=== PATIENT | female | born 1960 | race Caucasian/White ===

== ENCOUNTER 2019-09-26 17:06 | Inpatient (IN) ==
--- OUTSIDE RECORDS SUMMARY | 2019-09-26 20:33 | External Medical Summary | Continuity of Care Document ---
:1960 Author Name Sharla Monahan Address Unavailable Unavailable , Care Team Providers Name Role Phone Caren Monahan Unavailable [email or web address] PCP, UNKNOWN Unavailable Unavailable Problems Active medical history not documented Allergies and Adverse Reactions Allergy history not documented Medications Medications not documented Procedures Procedures not documented Immunizations Immunizations not documented Plan of Treatment Planned Observations Planned Goals not documented Results No Known Results Results not documented
[2019-09-26] MEDS ORDERED: ACETAMINOPHEN 325 MG TAB PO PRN (21:50)
[2019-09-26] MEDS ORDERED: ONDANSETRON INJ 2 MG/ML 2 ML VIAL IV PRN (21:50)
[2019-09-26] MEDS ORDERED: NITROGLYCERIN SL 0.4 MG/TAB TAB SL PRN (21:50)
[2019-09-26] MEDS ORDERED: PIPERACILLIN/TAZOBACTAM 4.5 GM in DEXTROSE 5% 100 ML IV SCH (21:50)
[2019-09-26] MEDS ORDERED: SODIUM CHLORIDE 0.9% 1000ML 1,000 ML IV SCH (21:50)
[2019-09-26] MEDS ORDERED: PIPERACILL/TAZOBAC CONSULT ACTIVE PRN (21:50)
[2019-09-26] MEDS ORDERED: TRAMADOL HCL 50 MG TABLET PO PRN (21:55)
[2019-09-26] MEDS ORDERED: ONDANSETRON 4 MG OD TAB PO PRN (21:55)
[2019-09-26] MEDS ORDERED: BISACODYL 10 MG SUPP PR PRN (21:55)
[2019-09-26] MEDS ORDERED: SOD PHOSPHATE/SOD BIPHOSPHATE ENEMA 132 ML BTL PR PRN (21:55)
[2019-09-26] MEDS ORDERED: ALBUTEROL 0.083% NEBU SOLN 3 ML VIAL INH PRN (21:55)
[2019-09-26] MEDS ORDERED: PIPERACILLIN/TAZOBACTAM 3.375 GM in DEXTROSE 5% 100 ML IV ONE (22:00)
[2019-09-26] MEDS ORDERED: PATIENT'S HEIGHT AND/OR WEIGHT NEEDED SCH (22:00)
[2019-09-26 22:45] LABS: Basophils # (auto) 0.11 K/uL (0-0.2); Basophils % (auto) 0.6 %; Eosinophils # (auto) 0.27 K/uL (0-0.5); Eosinophils % (auto) 1.5 %; Hematocrit (blood only) 34.9 % (37-47); Hemoglobin 10.8 g/dL (12.0-16.0); Immature Granulocytes # (auto) 0.82 K/uL (0.00-0.02); Immature Granulocytes % (auto) 4.6 %; Lymphocytes % (auto) 11.2 %; Mean Corpuscular Hemoglobin 28.1 pg (25-34); Mean Corpuscular Hgb Conc 30.9 g/dL (32-36); Mean Corpuscular Volume 90.6 fL (80-100); Mean Platelet Volume 8.1 fL (7.4-10.4); Monocytes # (auto) 2.14 K/uL (0.11-0.59); Neutrophils # (auto) 12.52 K/uL (1.4-6.5); Neutrophils % (auto) 70.1 %; Nucleated RBC # (auto) 0.21 K/uL (0-0); Nucleated RBC % (auto) 1.2 %; Platelet Count 502 K/uL (130-400); RDW Coefficient of Variation 16.7 % (11.5-14.5); RDW Standard Deviation 54.5 fL (36.4-46.3); Red Blood Count 3.85 M/uL (4.2-5.4); White Blood Count 17.86 K/uL (4.8-10.8)
--- NOTE | 2019-09-26 22:45 | XRay Report ---
XR chest 1V portable CLINICAL HISTORY: congestion dyspnea COMPARISON STUDY: 03/08/2016 FINDINGS: The bones soft tissues and hemidiaphragms are normal. The cardiomediastinal silhouette is n ormal. The lungs are clear. The pulmonary vasculature is normal. IMPRESSION: Negative chest. The above report was generated using voice recognition software. It may contain grammatical, syntax or spelling errors. Electronically signed by: David Ross M.D. 09/26/2019 10:44 PM
[2019-09-26] MEDS ORDERED: PANTOprazole 80 MG in DEXTROSE 5% 100 ML IV ONE (23:00)
[2019-09-26 23:03] LABS: INR 4.9 (0.9-1.1); Prothrombin Time 44.6 Seconds (9.0-12.0)
[2019-09-26] MEDS ORDERED: PHYTONADIONE 5 MG in SODIUM CHLORIDE 0.9% 50 ML IV ONE (23:13)
[2019-09-26 23:17] LABS: Albumin Globulin Ratio 0.4 (0.9-2); Albumin Level 2.5 gm/dl (3.4-5.0); BUN Creatinine Ratio 19.1 (10-20); Bilirubin,Total 0.2 mg/dl (0.2-1); Calcium 11.1 mg/dl (8.5-10.1); Creatinine Clr Calc Pharmacy 16.5 ml/min; Est GFR (African American) 13.7; Est GFR (Non-African American) 11.8; Globulin 6.5 gm/dl (2.5-4.0); Potassium 6.4 mmol/L (3.5-5.1)
[2019-09-26] MEDS ORDERED: NovoLIN-R INSULIN PER UNIT CHARGE IV STA (23:21)
[2019-09-26] MEDS ORDERED: DEXTROSE 50% 50 ML SYRINGE IV STA (23:21)
[2019-09-26] MEDS ORDERED: CALCIUM GLUCONATE 10% 1,000 MG in SODIUM CHLORIDE 0.9% 50 ML IV STA (23:23)
[2019-09-26] MEDS ORDERED: PANTOprazole 40 MG in DEXTROSE 5% 100 ML IV SCH (23:30)
[2019-09-26] MEDS ORDERED: INSULIN HUMAN REGULAR PER UNIT 10 UNITS in SYRINGE 9.9 ML IV ONE (23:30)
[2019-09-26 23:33] LABS: HCO3 ABG 18 mmol/L (19-24); Oxygen Saturation ABG 91.7 % (90-95); PCO2 ABG 63 mmHg (35-46); PO2 ABG 71 mm/Hg (80-95)
[2019-09-26] MEDS ORDERED: ERTAPENEM CONSULT ACTIVE PRN (23:34)
[2019-09-26 23:35] LABS: Allen Test POS (Pos); pH ABG 7.08 (7.35-7.45)
[2019-09-26] MEDS ORDERED: SODIUM BICARBONATE 8.4% 75 MEQ in SODIUM CHLORIDE 0.45 % 1,000 ML IV SCH (23:45)
[2019-09-27] MEDS ORDERED: ERTAPENEM SODIUM 500 MG in SODIUM CHLORIDE 0.9% 50 ML IV SCH
[2019-09-27] MEDS ORDERED: NALOXONE HCL 0.4 MG/1 ML VIAL/CARP IV STA (00:03)
--- NOTE | 2019-09-27 00:05 | History and Physical Report ---
DATE OF ADMISSION: 09/26/2019 CHIEF COMPLAINT: Shortness of breath, anemia, urinary tract infection, hematuria. HISTORY OF PRESENT ILLNESS: This is a 58-year-old female with past medical history significant for multiple sclerosis, iron deficiency anemia, paraplegia since last about 8 years, hypothyroidism, neurogenic bladder, used to be on Padilla in the past but no longer on Padilla, history of pulmonary embolism and deep venous thrombosis, on Coumadin, as per daughter the last blood clot was about 2 years ago, history of ventricular arrhythmia status post ablation as per records. Currently living at [facility] [place] since last about 6 years before she was in [place] as per [facility]. As per the assisted and as per daughter, patient is getting short of breath on sitting up and blood work showed hemoglobin of 6.5. Daughter says she is having hematuria since last about 6 weeks. She was also seen by SET UP MECHANIC in [place] and ultrasound was done which was unremarkable and CAT scan done at [place] [facility] shows staghorn calculus and also 3 mm left UPJ calculi. Her creatinine was 3.9, it was 1.47 in May 2019. INR was 4.8, white count was 11,000. Daughter says patient has history of sepsis from the UTI in the past. There is also a question of gallbladder disease. The CAT scan done today in the [facility] showed no gallstones. As per daughter, she has memory issues. When asked, the patient says she is having bleeding only for 1 week, but as per daughter she is having hematuria for the last 6 weeks. No recent fever, chills. She is on regular diet as per assisted. She is full code as per assisted. As per daughter, the patient received morphine before she was transferred from the [facility]. As per [facility] also, she was sleeping a lot there and right now she only opens her eyes and can tell her name but not answering any questions. As per [place] [facility], they were told that she sleeps a lot in the assisted too. Could not get any other history and review of systems. ALLERGIES: No known drug allergies. PAST MEDICAL HISTORY: As mentioned above. PAST SURGICAL HISTORY: Status post ablation of ventricular arrhythmia, status post tonsillectomy. MEDICATIONS: The patient is on Tylenol 650 mg p.o. q. 6 hours p.r.n., calcium citrate 200 mg b.i.d., Colace 100 mg p.o. daily, Coumadin 1.5 mg p.o. daily, Dulcolax suppository p.r.n., fentanyl patch 12 mcg every 3 days, Fleet enema p.r.n., Lasix 60 mg p.o. daily, albuterol nebs 1 inhalation every 4 hours p.r.n., levothyroxine 100 mcg p.o. daily, milk of magnesia p.r.n., mirtazapine 15 mg p.o. at bedtime, multivitamin with minerals 1 tablet p.o. daily, Percocet 5/325 mg one tablet p.o. q. 4 hours p.r.n., potassium chloride 10 mEq p.o. b.i.d., Premarin vaginally every Tuesday and , Topamax 50 mg p.o. b.i.d., Ultram 50 mg p.o. at bedtime p.r.n., Zofran 4 mg p.o. q. 6 hours p.r.n. FAMILY HISTORY: No family history as per records. SOCIAL HISTORY: No smoking, no alcohol. Currently disabled and a assisted resident. REVIEW OF SYSTEMS: Unobtainable at this time. PHYSICAL EXAMINATION: GENERAL: The patient is drowsy, opens eyes on calling and only oriented to name. HEENT: No pallor, no icterus. NECK: No JVD, no neck masses. CARDIOVASCULAR: S1, S2 heard, regular rate and rhythm, no murmur, no gallop. RESPIRATORY SYSTEM: Normal AP diameter. No accessory muscle use. No wheezing, no crackles. ABDOMEN: Soft, bowel sounds present. Mild discomfort. No distention, no guarding, no rigidity. CENTRAL NERVOUS SYSTEM: Drowsy, open her eyes and can tell her name only. Does not obey commands. EXTREMITIES: Bilateral lower extremities, no edema seen. Healed ankle pressure ulcers. LABORATORY DATA: Labs done at [facility] shows WBC of 11.7, hemoglobin 6.5, hematocrit 24.2, platelets 599. PT 55.3, INR 4.8. Urinalysis positive for leukocyte esterase and nitrite. Sodium 138, potassium 5.3, chloride 108, CO2 of 23. Troponin I less than 0.015. Urine occult blood positive. BUN was 74, creatinine was 3.9, serum glucose was 87. IMAGING DATA: CT of the abdomen and pelvis without contrast shows huge staghorn calculi filling both renal collecting system, a few 3 mm smaller left ureteral and UPJ calculi, diverticulosis. EKG: Shows sinus rhythm with right bundle branch block, QTC 413 at the rate of 90 beats per minute. ASSESSMENT AND PLAN: This is a 58-year-old female who has history of multiple sclerosis, iron deficiency anemia, neurogenic bladder, history of deep venous thrombosis, pulmonary embolism on Coumadin. She presents with shortness of breath and anemia. Was Hemoccult positive and she was having hematuria at [facility] and was transferred here for further care. 1. Anemia. Gastrointestinal bleed. The patient is on Coumadin. INR is 4.8. Hemoglobin 6.5, received 2 units of PRBCs in the [facility]. We will check H and H. We will check repeat INR. If still elevated we will give vitamin K. Hemoccult was positive. We will place on Protonix drip. We will keep her n.p.o. Gentle fluids. Consult GI in a.m. and closely monitor. 2. Hematuria. As per daughter it is going for last 6 weeks. Staghorn calculi in both renal collecting system on the CAT scan done at [facility] and also 3 mm UPJ stone in the left ureteropelvic junction. We will follow the renal ultrasound. Follow the urine cultures. The patient has a history of UTIs in the past. She has neurogenic bladder from MS. She got a Padilla in the past but no longer on Padilla. Padilla was placed in the [place] [facility]. She was having some hematuria. We will place her empirically on IV Invanz. Follow the cultures. UA was positive in [place].Consult urology in the a.m. 3. History of deep venous thrombosis and pulmonary embolism. The patient's daughter says the blood clots were about 2 years ago. We are reversing the INR because of the above. Will restart when stable. Follow INR daily. 4. History of multiple sclerosis and history of paraplegia, bed ridden for last about 8 years. Coming from [place] and needs followup. 5. History of depression. Continue Remeron and Topamax. 6. History of ventricular arrhythmia status post ablation. 7. History of hypothyroidism, on Synthroid. 8. History of chronic pain, chronic headaches.ON fentanyl patch, Percocet, and tramadol, which we are holding for now as patient is drowsy. She received morphine while she was coming here. Restart when patient is more awake. Drowsy mostly from the morphine and the patient also generally has some dementia and sleeps a lot. Holding her home narcotic medications, we will monitor. We will also follow ABG and ammonia levels. 9. Question of congestive heart failure. The patient is on Lasix 60 mg daily,and potassium supplements. Will hold for GERI.The patient is getting gentle fluids. Monitor for any volume overload. Follow chest x-ray. 10. Deep venous thrombosis prophylaxis, sequential compression devices. 11. Disposition: Closely monitor in the med/surg tele. Level 1 full code. Addendum: Labs showed: Cr 3.9, K 6.4, ABG PH 7.08. Received iv dextrose, insulin, calcium gluconate and started on biacrb drip after taking to Nephrology for hyperkalemia. But as Abg showed acidosis, called allied health professional and was advised to transfer to Tertiary care for emergent dialysis . Betty accepted in transfer. MARINA
[2019-09-27] MEDS ORDERED: SODIUM CHLORIDE 0.9% 1000ML 1,000 ML IV SCH (00:45)
[2019-09-27] MEDS ORDERED: SODIUM CHLORIDE 0.9% 250 ML IV PRN (00:49)
--- NOTE | 2019-09-27 00:56 | Critical Care Consultation ---
Date of Consultation September 27, 2019 Assessment & Plan (1) Admitted to intensive care unit: Patient is clearly hypovolemic. She needs aggressive fluid resuscitation. We will give her a liter bolus now and follow her fluid status closely. We will likely give her more fluid boluses. She is severely altered on exam likely due to metabolic encephalopathy from urinary tract infection. She is hyperkalemic due to underlying renal failure which is likely from hypovolemia. The other possibility is obstructive uropathy given that she has large bilateral kidney stones. We are trending troponin, CK and BMP. She has received calcium gluconate, insulin and D50. EKG does not indicate any obvious evidence of peak T waves at this present time. Obtain salicylate and acetaminophen levels as well. She does have an elevated ammonia. Given that we have limited resources in terms of dialysis here at night and the lack of interventional radiology, we will go ahead and transfer to tertiary care center that is able to do dialysis 24/. Also, should she need interventional radiology, I think it would be better for her to be in a hospital that has an interventional radiology suite so that she can undergo percutaneous nephrostomy tubes if necessary. Continue Vancomycin and ertepenam. Obtain blood and urine cultures. Will give FFP as well if procedures required given elevated INR and also due to hematuria. Vitamin K also given. Trend H/H q6h. (2) GERI (acute kidney injury): (3) Acute respiratory acidosis: (4) Complicated urinary tract infection: (5) Obstructive uropathy: (6) Hypovolemia: (7) Acute blood loss anemia: History of Present Illness Reason for Consultation: Hyperkalemia, acidosis Requesting Physician: Lenore Attending Physician: Marco Antonio Johnson MD History of Present Illness This is a 58-year-old female with a past medical history of pulmonary embolism, chronic indwelling Padilla catheter, multiple sclerosis living in long term and history of ventricular arrhythmia who presented to the hospital in [place] due to confusion and shortness of breath. History is extremely limited given that patient is unable to provide me with any history. There is no family at bedside. I discussed the case with the credit and collection manager who indicated to me that apparently her hemoglobin was down to 6.5 in the outside facility and she was tachypneic. They also did a CT scan of her belly that showed bilateral staghorn calculi. She has had minimal urine output over the last couple hours. ABG indicates a combined respiratory metabolic acidosis. She also has hyperkalemia on her labs. She is in acute renal failure with a creatinine of almost 4. EKG does not indicate any evidence of peaked T waves. She received Rocephin in the outside hospital. Upon my evaluation, she was essentially obtunded. I did a sternal rub and she woke up for a few seconds and looked at me and then promptly fell back asleep. Reportedly she received a dose of morphine in the outside hospital before being transferred. We have not given her any Narcan as of yet. She did receive 2 units of packed RBCs for hemoglobin of 6.5 in the outside facility. She has essentially received no fluid as of yet. She had a Protonix drip currently running. She was ultimately transferred to [facility] for GI services given there was a concern of a GI bleed. 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 Clear to auscultation bilaterally. Cardiovascular: RRR, no murmur, no edema Gastrointestinal (Abdomen): normal bowel sounds, soft, nontender, no hep atosplenomegaly Musculoskeletal: no cyanosis or clubbing, extremities motor strength 5/5 Skin: no rashes, warm and dry Neurologic: + confused and + obtunded Lymphatic: no cervical or axillary lymphadenopathy Results & Data Vital Signs (Past 12 Hours) Vital Signs Temp Pulse Resp BP BP Pulse Ox 09/26/19 22:55 98.4 F 64 22 112/83 94 09/26/19 20:57 99.0 F 86 22 129/73 98 I personally reviewed the patient's pertinent labs and imaging. Coding Level of Care Code New Pt Critical Care 1st 30-74 mins Patient Type New Diagnoses GERI (acute kidney injury) N17.9 Acute respiratory acidosis E87.2 Complicated urinary tract infection N39.0 Obstructive uropathy N13.9 Hypovolemia E86.1 Acute blood loss anemia D62 Admitted to intensive care unit Z78.9 Time Spent (min) 45
[2019-09-27] MEDS ORDERED: NALOXONE HCL 1 MG in SODIUM CHLORIDE 0.9% 1000ML 1,000 ML IV PRN (01:06)
--- NOTE | 2019-09-27 01:38 | Discharge Summary ---
Date of Service September 27, 2019 Duplicate Admission HPI Per Admitting Provider HISTORY OF PRESENT ILLNESS: This is a 58-year-old female with past medical history significant for multiple sclerosis, iron deficiency anemia, paraplegia since last about 8 years, hypothyroidism, neurogenic bladder, used to be on Padilla in the past but no longer on Padilla, history of pulmonary embolism and deep venous thrombosis, on Coumadin, as per daughter the last blood clot was about 2 years ago, history of ventricular arrhythmia status post ablation as per records. Currently living at [facility] [place] since last about 6 years before she was in [place] as per [place] [facility]. As per the longterm and as per daughter, patient is getting short of breath on sitting up and blood work showed hemoglobin of 6.5. Daughter says she is having hematuria since last about 6 weeks. She was also seen by CHIP MIXING MACHINE OPERATOR in [place] and ultrasound was done which was unremarkable and CAT scan done at [place] [facility] shows staghorn calculus and also 3 mm left UPJ calculi. Her creatinine was 3.9, it was 1.47 in May 2019. INR was 4.8, white count was 11,000. Daughter says patient has history of sepsis from the UTI in the past. There is also a question of gallbladder disease. The CAT scan done today in the [facility] showed no gallstones. As per daughter, she has memory issues. When asked, the patient says she is having bleeding only for 1 week, but as per daughter she is having hematuria for the last 6 weeks. No recent fever, chills. She is on regular diet as per longterm. She is full code as per longterm. As per daughter, the patient received morphine before she was transferred from the [facility]. As per [place] [facility] also, she was sleeping a lot there and right now she only opens her eyes and can tell her name but not answering any questions. As per [place] [facility], they were told that she sleeps a lot in the longterm too. Could not get any other history and review of systems. Principal Diagnosis geri hyperkalemia acidosis anemia hematuria kidney stones gi bleed Discharge Data Allergies Allergy/AdvReac Type Severity Reaction Status Date / Time No Known Allergies Allergy Unknown Verified 10/02/07 08:30 Consultations 09/26/19 21:50 Consult Case Management - Discharge Planning Routine 09/27/19 00:45 Consult Promotions Director Routine 09/27/19 08:00 Consult Gastroenterology Routine Consult Nephrology Routine Consult Urology Routine Ordered Studies 09/26/19 22:37 US guide vascular access Stat 09/26/19 22:51 US renal/blad retro comp Routine Total Time Total Time Spent Total Time Spent (In Minutes): 100 minutes Discharge Plan Discharge Items Patient Disposition: Transfer Acute Care Hospital Reason For Visit: GERI,ANEMIA Discharge Diagnosis: GERI, Hyperkalemia, Acidosis, Anemia, Hematuria, Kidney stones, GI bleed, Encephalopathy Activity Comment: Bed bound Non-emergency contact: Primary Care Provider Call non-emergency contact if: your symptoms worsen Follow-up/Referrals: Brandon Unger [Primary Care Provider] - Diet: Clear liquid Diet Comment: npo currently Addtl Attending Provider Instructions: Transferring To [place] for emergent dialysis Pending Studies at Discharge: Yes Studies:: cultures Stand-Alone Forms: Critical Access Hospital Skilled Items Patient informed of condition?: No DNR: No Discharge Level of Care: Other Communicable Disease: No Discharge Prognosis: Other Lines: Peripheral IV Urinary Catheter: Yes Medications and DC Order Prescriptions: Continued Topiramate (Topamax) 50 MG tablet 50 mg PO BID Qty: 0 RF: 0 Albuterol Soln (Proventil 0.083% 2.5MG/3ML) NEBULIZR-SOLN 2.5 mg Inhalation Q4 PRN (Reason: Shortness of Breath) Qty: 0 RF: 0 levothyroxine 100 mcg Capsule 100 mcg PO DAILY RF: 0 Discontinued BISACODYL (BISAC-EVAC) 10 MG SUP 10 mg RE UD PRN (Reason: Constipation) Qty: 0 RF: 0 Multivitamins/Minerals (Mvi With Minerals) tablet 1 tab PO DAILY Qty: 0 RF: 0 SODIUM PHOSPHATES (FLEET ENEMA SIX PACK) 1 REJI REJI 1 dose ID UD PRN (Reason: Constipation) Qty: 0 RF: 0 CHOLECALCIFEROL (VITAMIN D3) 1,000 UNIT tablet 2,000 inter.unit PO DAILY Qty: 0 RF: 0 Acetaminophen (Tylenol) 325 MG tablet 650 mg PO Q6 PRN (Reason: Pain or Fever) Qty: 0 RF: 0 ONDANSETRON HCL (ZOFRAN) 4 MG tablet 4 mg PO Q8 PRN (Reason: Nausea) Qty: 0 RF: 0 PREMARIN VAG CM 0.5 g Vaginal 2XWK Qty: 0 RF: 0 POTASSIUM CHLORIDE (POTASSIUM CHLORIDE ER) 10 MEQ capsule 10 meq PO BID 90 Days Qty: 180 RF: 1 FENTANYL (DURAGESIC) 12 MCG/ DIS 12 mcg Transdermal [id number] Qty: 2 RF: 0 furosemide [Lasix] 40 mg Tablet 60 mg PO DAILY RF: 0 tramadol [Ultram] 50 mg Tablet 50 mg PO Q6H PRN (Reason: Pain, Moderate) RF: 0 warfarin [Coumadin] 3 mg Tablet 1.5 mg PO DAILY RF: 0 mirtazapine 15 mg Tablet 15 mg PO HS RF: 0 Colace 100 mg 100 mg PO DAILY RF: 0 Percocet 5 mg 1 tab PO Q4H PRN (Reason: Pain) RF: 0 Discharge Orders: Discharge Order (Routine); Ordered 09/27/19 Ordered By: Azam Blank Admission Data Admit Date/Time: 09/26/19 20:31 Attending Provider: Marco Antonio Johnson Admit Provider: Marco Antonio Johnson Primary Care Provider: Brandon Unger Other Providers: Tj Menjivar ; Ramirez Eddy ; Jessica Horne ; Shikha Max ; Shalom Gutierrez ; William Melendez ; Jimmy Peralta ; Ana Lilia Lou ; Ananth Valero ; Wilmer Blancas ; Elsa Austin ; Irina Estrella ; Geneva Pittman ; Edyta Ramires ; Kerline Mooney ; Stephanie Mcdonough ; Shaina Chavez
--- NOTE | 2019-09-27 01:39 | Discharge Summary ---
Date of Service September 27, 2019 Admission HPI Per Admitting Provider HISTORY OF PRESENT ILLNESS: This is a 58-year-old female with past medical history significant for multiple sclerosis, iron deficiency anemia, paraplegia since last about 8 years, hypothyroidism, neurogenic bladder, used to be on Padilla in the past but no longer on Padilla, history of pulmonary embolism and deep venous thrombosis, on Coumadin, as per daughter the last blood clot was about 2 years ago, history of ventricular arrhythmia status post ablation as per records. Currently living at [facility] [place] since last about 6 years before she was in [place] as per [facility]. As per the residential and as per daughter, patient is getting short of breath on sitting up and blood work showed hemoglobin of 6.5. Daughter says she is having hematuria since last about 6 weeks. She was also seen by [facility] in [place] and ultrasound was done which was unremarkable and CAT scan done at [facility] shows staghorn calculus and also 3 mm left UPJ calculi. Her creatinine was 3.9, it was 1.47 in May 2019. INR was 4.8, white count was 11,000. Daughter says patient has history of sepsis from the UTI in the past. There is also a question of gallbladder disease. The CAT scan done today in the [facility] showed no gallstones. As per daughter, she has memory issues. When asked, the patient says she is having bleeding only for 1 week, but as per daughter she is having hematuria for the last 6 weeks. No recent fever, chills. She is on regular diet as per residential. She is full code as per residential. As per daughter, the patient received morphine before she was transferred from the [facility]. As per [facility] also, she was sleeping a lot there and right now she only opens her eyes and can tell her name but not answering any questions. As per [facility], they were told that she sleeps a lot in the residential too. Could not get any other history and review of systems. Admission Exam Per Admitting Provider PHYSICAL EXAMINATION: GENERAL: The patient is drowsy, opens eyes on calling and only oriented to name. HEENT: No pallor, no icterus. NECK: No JVD, no neck masses. CARDIOVASCULAR: S1, S2 heard, regular rate and rhythm, no murmur, no gallop. RESPIRATORY SYSTEM: Normal AP diameter. No accessory muscle use. No wheezing, no crackles. ABDOMEN: Soft, bowel sounds present. Mild discomfort. No distention, no guarding, no rigidity. CENTRAL NERVOUS SYSTEM: Drowsy, open her eyes and can tell her name only. Does not obey commands. EXTREMITIES: Bilateral lower extremities, no edema seen. Healed ankle pressure ulcers. Principal Diagnosis GERI, HYperkalemia Acidosis Anemia Hematuria kidney stones Gi bleed Discharge Data Allergies Allergy/AdvReac Type Severity Reaction Status Date / Time No Known Allergies Allergy Unknown Verified 10/02/07 08:30 Consultations 09/26/19 21:50 Consult Case Management - Discharge Planning Routine 09/27/19 00:[address] Sql Developer Routine 09/27/19 08:00 Consult Gastroenterology Routine Consult Nephrology Routine Consult Urology Routine Ordered Studies 09/26/19 22:37 US guide vascular access Stat 09/26/19 22:51 US renal/blad retro comp Routine Hospital Course (1) Admitted to intensive care unit: Total Time Total Time Spent Total Time Spent (In Minutes): 100minutes Discharge Plan Discharge Items Patient Disposition: Transfer Acute [facility] Reason For Visit: GERI,ANEMIA Discharge Diagnosis: GERI, Hyperkalemia, Acidosis, Anemia, Hematuria, Kidney stones, GI bleed, Encephalopathy Activity Comment: Bed bound Non-emergency contact: Primary Care Provider Call non-emergency contact if: your symptoms worsen Follow-up/Referrals: Brandon Unger [Primary Care Provider] - Diet: Clear liquid Diet Comment: npo currently Addtl Attending Provider Instructions: Transferring To [facility] for emergent dialysis Pending Studies at Discharge: Yes Studies:: cultures Stand-Alone Forms: [facility] Skilled Items Patient informed of condition?: No DNR: No Discharge Level of Care: Other Communicable Disease: No Discharge Prognosis: Other Lines: Peripheral IV Urinary Catheter: Yes Medications and DC Order Prescriptions: Continued Topiramate (Topamax) 50 MG tablet 50 mg PO BID Qty: 0 RF: 0 Albuterol Soln (Proventil 0.083% 2.5MG/3ML) NEBULIZR-SOLN 2.5 mg Inhalation Q4 PRN (Reason: Shortness of Breath) Qty: 0 RF: 0 levothyroxine 100 mcg Capsule 100 mcg PO DAILY RF: 0 Discontinued BISACODYL (BISAC-EVAC) 10 MG SUP 10 mg RE UD PRN (Reason: Constipation) Qty: 0 RF: 0 Multivitamins/Minerals (Mvi With Minerals) tablet 1 tab PO DAILY Qty: 0 RF: 0 SODIUM PHOSPHATES (FLEET ENEMA SIX PACK) 1 REJI REJI 1 dose MA UD PRN (Reason: Constipation) Qty: 0 RF: 0 CHOLECALCIFEROL (VITAMIN D3) 1,000 UNIT tablet 2,000 inter.unit PO DAILY Qty: 0 RF: 0 Acetaminophen (Tylenol) 325 MG tablet 650 mg PO Q6 PRN (Reason: Pain or Fever) Qty: 0 RF: 0 ONDANSETRON HCL (ZOFRAN) 4 MG tablet 4 mg PO Q8 PRN (Reason: Nausea) Qty: 0 RF: 0 PREMARIN VAG CM 0.5 g Vaginal 2XWK Qty: 0 RF: 0 POTASSIUM CHLORIDE (POTASSIUM CHLORIDE ER) 10 MEQ capsule 10 meq PO BID 90 Days Qty: 180 RF: 1 FENTANYL (DURAGESIC) 12 MCG/ DIS 12 mcg Transdermal [id number] Qty: 2 RF: 0 furosemide [Lasix] 40 mg Tablet 60 mg PO DAILY RF: 0 tramadol [Ultram] 50 mg Tablet 50 mg PO Q6H PRN (Reason: Pain, Moderate) RF: 0 warfarin [Coumadin] 3 mg Tablet 1.5 mg PO DAILY RF: 0 mirtazapine 15 mg Tablet 15 mg PO HS RF: 0 Colace 100 mg 100 mg PO DAILY RF: 0 Percocet 5 mg 1 tab PO Q4H PRN (Reason: Pain) RF: 0 Discharge Orders: Discharge Order (Routine); Ordered 09/27/19 Ordered By: Azam Blank Admission Data Admit Date/Time: 09/26/19 20:31 Attending Provider: Marco Antonio Johnson Admit Provider: Marco Antonio Johnson Primary Care Provider: Brandon Unger Other Providers: Tj Menjivar ; Ramirez Eddy ; Jessica Horne ; Shikha Max ; Shalom Gutierrez ; William Melendez ; Jimmy Peralta ; Ana Lilia Lou ; Ananth Valero ; Wilmer Blancas ; Elsa Austin ; Irina Estrella ; Geneva Pittman ; Edyta Ramires ; Kerline Mooney ; Stephanie Mcdonough ; Shaina Chavez
[2019-09-27 01:43] LABS: Blood Urea Nitrogen 74 mg/dl (7-18); Carbon Dioxide 19 mmol/L (21-32); Chloride 114 mmol/L (98-107); Est GFR (African American) 13.2; Sodium 139 mmol/L (136-145)
[2019-09-27 01:44] LABS: BUN Creatinine Ratio 18.4 (10-20); Calcium 10.9 mg/dl (8.5-10.1); Creatinine Clr Calc Pharmacy 16.1 ml/min; Est GFR (Non-African American) 11.4; Glucose 153 mg/dl (70-99)
[2019-09-27] MEDS ORDERED: NORMOSOL-R 1,000 ML IV ONE (01:44)
[2019-09-27] MEDS ORDERED: Nursing to Pharmacy Communication ONE (01:48)
[2019-09-27 01:54] LABS: Allen Test POS (Pos); Base Excess ABG -12.4 mEq/L (-9-1.8); Creatine Kinase 21 U/L (26-192); HCO3 ABG 17 mmol/L (19-24); Oxygen Saturation ABG 92.9 % (90-95); PCO2 ABG 54 mmHg (35-46); PO2 ABG 74 mm/Hg (80-95); Troponin I < 0.015 ng/ml (0-0.045)
[2019-09-27 01:55] LABS: pH ABG 7.12 (7.35-7.45)
[2019-09-27 03:51] LABS: Acetaminophen < 2 ug/ml (10-30); Salicylate 3.9 mg/dl (2.8-20)
[2019-09-27] MEDS ORDERED: LEVOTHYROXINE SODIUM 100 MCG TABLET PO SCH (06:30)
[2019-09-27] MEDS ORDERED: CEROVITE ADV FORMULA TAB PO SCH (09:00)
[2019-09-27] MEDS ORDERED: POTASSIUM CHLORIDE 10 MEQ TABCR PO SCH (09:00)
[2019-09-27] MEDS ORDERED: DOCUSATE SODIUM 100 MG CAP PO SCH (09:00)
[2019-09-27] MEDS ORDERED: FUROSEMIDE 40 MG TAB PO SCH (09:00)
[2019-09-27] MEDS ORDERED: MIRTAZAPINE TAB 15 MG TAB PO SCH (21:00)
== END 2019-09-27 02:52 | disposition short-term general hospital (02) | DRG 377 ==
LOC: 2W 20:31 → 1E 09-27 00:43